=== PATIENT | female | born 1995 ===

== ENCOUNTER 2018-06-12 17:13 | Emergency (ER) | payer OTHER ==
[~2018-06-12] VITALS: Ht 157.5 cm; Wt 52.2 kg
[2018-06-12 17:42] VITALS: BP 103/74
--- NOTE | 2018-06-12 17:44 | ER.PDOC ---
General Chief Complaint: Cough/Congestion Stated Complaint: FEVER,COUGH Time seen by MD: 17:55 Source: patient Exam Limitations: no limitations History of Present Illness Timing/Duration: gradual, last week Severity: mild Associated Symptoms: fever/chills, runny nose, sinus pain/drainage, hoarseness , cough Prior symptoms/Treatment: Similar symptoms previous Allergies: Coded Allergies: No Known Allergies (Unverified , 06/12/18) All Other Systems: Reviewed and Negative Past Medical History Surgical History: no surgical history LMP (females 10-50): this week Social History Smoking: non-smoker Alcohol Use: none Drug Use: none Reviewed Nursing Reviewed: Vital Signs, Abn. Noted Physical Exam General Appearance: alert, no distress Ear: ear nml Nose: rhinorrhea Throat: pharynx nml, airway nml Neck: nml inspection, supple Respiratory: no resp.distress, breath sounds nml Abdomen: non-tender, no organomegaly CVS: reg rate & rhythm, heart sounds nml Skin: color nml, no rash, warm/dry Extremities: non-tender, nml ROM, no pedal edema NEURO/PSYCH: oriented x 3, CN's nml as tested, motor nml, sensation nml, mood/ affect nml Results/Orders Results/Orders Administered Medications Medications (Trade) Dose Ordered Sig/Becca Route PRN Reason Start Time Stop Time Status Last Admin Dose Admin Triamcinolone Acetonide (Kenalog-40) 40 mg OT ONCE IM 06/12/18 18:00 06/12/18 18:01 DC 06/12/18 18:02 Departure Time of Disposition: 17:55 Disposition: 01 HOME, SELF-CARE Impression: Primary Impression: Acute sinusitis Condition: Stable Referrals: PCP,UNKNOWN (PCP) PRIMARY CARE PROVIDER Duration or Time Spent with Pa: 1 HR JONATHON SANFORD MD Jun 12, 2018 17:44
[2018-06-12] MEDS ORDERED: KENALOG-40 ONE (17:59)
[2018-06-12] MEDS ORDERED: KENALOG-40 IM ONE (18:00)
[2018-06-12 18:37] VITALS: BP 103/74
== END 2018-06-12 18:35 | disposition home or self-care (01) ==
LOC: ER 17:13
DX: J01.90 Acute sinusitis, unspecified (principal)
CPT/HCPCS: 87804 ×2; 96372; 99283; J3301